=== PATIENT | female | born 2000 ===

== ENCOUNTER 2018-05-04 13:38 | Emergency (ER) | payer BC ==
[~2018-05-04] VITALS: Ht 157.5 cm; Wt 45.4 kg
== END 2018-05-04 16:24 | disposition home or self-care (01) ==
LOC: ER 13:38
DX: S61.451A Open bite of right hand, initial encounter (principal); W55.01XA Bitten by cat, initial encounter; Y93.89 Activity, other specified; Y92.89 Other specified places as the place of occurrence of the external cause; Y99.8 Other external cause status